=== PATIENT | female | born 1965 | race Caucasian/White ===

== ENCOUNTER 2017-02-04 20:52 | Inpatient (IN) | payer OTHER ==
[~2017-02-04] VITALS: Ht 165.1 cm; Wt 58.1 kg
--- NOTE | ~2017-02-04 | HC ---
[facility] [place] [address] CONSULTATION Name: AVNIDARREL WILSONN Room #: 211-P ADM IN M.R.#: [id number] Admission: 02/04/17 Attend Phys: Ba Dill MD Discharge: Date of : 67 Report #: [id number] THIS REPORT FOR: //name// CC: Marc Telles MD DATE OF SERVICE: 02/05/2017 HISTORY OF PRESENT ILLNESS: The patient is a 51-year-old single white female who I was asked to see in the hospital after she is noted to be in atrial fibrillation. The patient has an extensive past medical history. She apparently has tripped throughout as a child and had mitral valve replacement in 2005 in [place]. She has a history of atrial fibrillation. She has been chronically anticoagulated. Her last echocardiogram here at [facility] in 2014, showed normal left ventricular function, mechanical mitral valve. There appeared to be a mild aortic stenosis. The patient was admitted here in 2014 with respiratory failure and had to be intubated, developed renal failure with creatinine of 8. She had an episode of hypoxic encephalopathy and possible seizure. She eventually was discharged to rehabilitation. The patient was last seen by Dr. Connor in the cardiology clinic in December 2014. At that time, was in sinus rhythm. Since that time, the patient stays active, but recently has been short of breath. She has been treated with steroids and antibiotics. Because of increasing shortness of breath, she went to the hospital last night and was found to be in atrial fibrillation. She was admitted for further evaluation and treatment. She has had a recent cough. She has had some back pain. She denied any palpitations, syncope. She has had no bleeding. PAST MEDICAL HISTORY: Otherwise significant for cholecystectomy, hysterectomy. She apparently had bypass of the right leg in the past. She had previous surgery on an aneurysm in [place]. She has a history of hyperlipidemia. MEDICATIONS: On admission consisted of Abilify, Lipitor, Keppra, Prilosec, furosemide, potassium, warfarin and amiodarone. She apparently is no longer on sotalol. ALLERGIES: She has no known drug allergies. FAMILY HISTORY: Her mother had stent. SOCIAL HISTORY: She is , lives by herself in [place], [place]. 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 Smokes 1-2 cigarettes a day. No alcohol abuse. REVIEW OF SYSTEMS: She has had no history of stroke, asthma. She had a peptic ulcer years ago. No liver disease. She has chronic kidney disease, [place] [address] CONSULTATION Name: DARREL HOLLY Room #: 211-P [facility] IN [facility]#: [id number] Admission: 02/04/17 Attend Phys: Ba Dill MD Discharge: Date of : 67 Report #: [id number] No psychiatric illness. PHYSICAL EXAMINATION: GENERAL: Revealed a middle-aged female who appeared in no distress. VITAL SIGNS: She had a blood pressure of 100/60, pulse is 90. She is afebrile. HEENT: She is anicteric. Conjunctivae are pink. Mucous membranes are moist. NECK: Veins do not appear distended. No carotid bruits. CHEST: Clear to auscultation. CARDIOVASCULAR: Regular rate with grade 3 systolic ejection murmur. ABDOMEN: Soft. EXTREMITIES: Had no edema. Posterior tibial pulse 2+ bilaterally. SKIN: Cool and dry. NEUROLOGIC: Nonfocal. Her ECG shows atrial fibrillation with a controlled ventricular response rate. LABORATORY DATA: Sodium 144, creatinine 1.3. Her troponin is 0.04. INR is 2.5. White blood cell count 12.4, hemoglobin 10.6. IMPRESSION AND RECOMMENDATIONS: 1. Atrial fibrillation. Onset unclear. The patient has been chronically anticoagulated. At this time, I would not recommend attempts at cardioversion. I would aim for rate control. 2. Previous mitral valve replacement. Recommend repeat echocardiogram. 3. Previous surgery on a brain aneurysm. 4. Previous right lower extremity bypass 5. Tobacco abuse. 6. History of chronic kidney disease. 7. Hyperlipidemia. The patient is on a statin drug. <ELECTRONICALLY SIGNED> By: Marc Perez MD, FACC 02/06/17 1606 1411 0640 Marc Perez MD, FACC /nt
--- NOTE | ~2017-02-04 | EKG ---
[place] [address] [facility] [place] [address] ELECTROCARDIOGRAM REPORT Name: HOLLYDARREL Room #: 211- DIS IN M.R.#: [id number] Admission: 02/04/17 Attend Phys: Ba Dill MD Discharge: 02/07/17 Date of : 67 Report #: [id number] THIS REPORT FOR: //name// 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 : 1965 Requested By: Marc Perez Order Number: [id number] MD: Diaz Magallanes Measurements Intervals [place] Rate: 100 P: [place]: QRS: -34 QRSD: 92 T: -18 QT: 328 QTc: 423 Interpretive Statements Atrial fibrillation Poor R wave progression Baseline wander in lead(s) V1,V3 No previous ECG available for comparison Electronically Signed On 02-08-2017 8:12:16 CDT by Diaz Magallanes [email or web address] <ELECTRONICALLY SIGNED> By: Diaz Magallanes MD, [facility] 02/08/1712 5 5 Diaz Magallanes MD, [facility] /EPI
--- NOTE | ~2017-02-04 | EKG ---
[place] [address] [facility] [address] [address] ELECTROCARDIOGRAM REPORT Name: DARREL HOLLY Room #: 211-[facility] IN M.R.#: [id number] Admission: 02/04/17 Attend Phys: Ba Dill MD Discharge: 02/07/17 Date of : 67 Report #: [id number] THIS REPORT FOR: //name// [facility] Test Date: 2017-02-05 Test Time: 07:51:48 Pat Name: DARREL HOLLY Department: Room: 211 P Gender: F Lawn And Garden Technician: jayce : 1965 Requested By: Marisel Peña Order Number: [id number] MD: Diaz Magallanes Measurements Intervals [place] Rate: 75 P: [place]: QRS: 3 QRSD: 91 T: 54 QT: 441 QTc: 493 Interpretive Statements Atrial fibrillation Left ventricular hypertrophy Poor R wave progression No previous ECG available for comparison Electronically Signed On 02-07-2017 13:32:48 CDT by Diaz Magallanes [email or web address] <ELECTRONICALLY SIGNED> By: Diaz Magallanes MD, [facility] 02/07/17 1332 075 075 Diaz Magallanes MD, FACC /EPI
--- NOTE | ~2017-02-04 | 2DMMODE ---
[facility] [address] [place] [address] 2 D/M-MODE ECHOCARDIOGRAM Name: DARREL HOLLY Room #: 211-P ADM IN M.R.#: [id number] Admission: 02/04/17 Attend Phys: Tori Mckenna Discharge: Date of : 67 Date of Service: 02/05/17 1533 Report #: [id number] THIS REPORT FOR: //name// APPROVED REPORT Study performed: 02/05/2017 09:33:54 EXAM: Comprehensive 2D, Doppler, and color-flow Echocardiogram Patient Location: Bedside Room #: 211 Status: routine BSA: 1.58 BP: 90/54 mmHg Other Information Study Quality: Adequate Indications Prosthetic Valve Atrial Fibrillation 2D Dimensions RVDd: 42.80 mm LVEF(%): 47.45 (>50%) IVSd: 9.68 (7-11mm) LVOT Diam: 12.51 (18-24mm) LVDd: 43.43 mm PWd: 13.48 (7-11mm) Ascending Ao: 21.78 (22-36mm) LVDs: 33.17 (25-40mm) Aortic Root: 19.39 mm Concepcion's LVEF: 47.45 % Volumes Left Atrial Volume (Systole) Single Plane 4CH: 99.46 mL Single Plane 2CH: 127.13 mL LA ESV Index: 77.00 mL/m2 Aortic Valve AoV Peak Casa.: 4.00 m/s LVOT Max P.58 mmHg AO Mean Gr.: 34.44 mmHg AO V2 Mean: 2.74 m/s LVOT Max V: 2.38 m/s AO V2 VTI: 91.04 cm DEMETRIS Vmax: 0.73 cm2 Mitral Valve [facility] [address] [place] [address] 2 D/M-MODE ECHOCARDIOGRAM Name: DARREL HOLLY Room #: 211-P [facility] IN ..#: [id number] Admission: 02/04/17 Attend Phys: Tori Mckenna Discharge: Date of : 67 Date of Service: 02/05/17 1533 Report #: [id number] MV Peak Gr.: 21.21 mmHg MV Mean Gr.: 8.34 mmHg MV Decel. Time: 320.99 ms MV Max Casa.: 2.30 m/s MV Mean Casa.: 1.26 m/s MV VTI: 448.95 mm Pulmonary Valve PV Peak Casa.: 0.86 m/s PV Peak Gr.: 2.94 mmHg Tricuspid Valve TR Peak Casa.: 3.25 m/s RAP Estimate: 10.00 mmHg TR Peak Gr.: 42.15 mmHg Left Ventricle The left ventricle is normal size. There is global hypokinesis of the left ventricle. There is normal left ventricular wall thickness. Left ventricular systolic function is mild to moderately decreased. LVEF is 30-35%. This study is not technically sufficient to allow evaluation of the LV diastolic function due to atrial fibrillation. Right Ventricle Right ventricle is mildly dilated. Right ventricle is hypokinetic. Atria Left atrium is severely dilated. Right atrium is moderately dilated. Aortic Valve Aortic valve leaflets are thickened. Moderate aortic regurgitation. There is moderate to severe valvular aortic stenosis. Calculated aortic valve area is 0.7 cm2 with maximum pressure gradient of 64 mmHg and mean pressure gradient of 34mmHg. Aortic valve area by planimetry measures 1.0 cm2. Moderate aortic stenosis. Mitral Valve There is a mechanical mitral valve present with a maximum pressure gradient of 21 mmHg and a mean pressure gradient of 8 mmHg. Difficult to assess mitral regurgitation due to mechanical valve masking. Tricuspid Valve The tricuspid valve is normal in structure. There is severe tricuspid regurgitation. The right atrial pressure is estimated at 10 mmHg. [facility] [address] [place] [address] 2 D/M-MODE ECHOCARDIOGRAM Name: DARREL HOLLY Room #: 211-P [facility] IN [facility].#: [id number] Admission: 02/04/17 Attend Phys: Tori Mckenna Discharge: Date of : 67 Date of Service: 02/05/17 1533 Report #: [id number] is estimated at 52 mmHg. Pulmonic Valve The pulmonary valve is normal in structure. Mild pulmonic regurgitation. Great Vessels The aortic root is normal in size. Aortic arch is not visualized. IVC is normal in size and collapses <50% with inspiration. Pericardium No pericardial effusion. <Conclusion> LVEF is 30-35%. Left atrium is severely dilated. Right atrium is moderately dilated. Aortic valve leaflets are thickened. Moderate aortic regurgitation. Calculated aortic valve area is 0.7 cm2 with maximum pressure gradient of 64 mmHg and mean pressure gradient of 34mmHg. Aortic valve area by planimetry measures 1.0 cm2. Moderate aortic stenosis. There is a mechanical mitral valve present with a maximum pressure gradient of 21 mmHg and a mean pressure gradient of 8 mmHg. There is severe tricuspid regurgitation. The right atrial pressure is estimated at 10 mmHg. PAP is estimated at 52 mmHg. <ELECTRONICALLY SIGNED> By: Marc Perez MD, FACC 02/05/17 1533 1533 1533 Marc Perez MD, FACC /INF
--- NOTE | ~2017-02-04 | EKG ---
[address] [place] [address] ELECTROCARDIOGRAM REPORT Name: DARREL HOLLY Room #: 211-[facility] IN M.R.#: [id number] Admission: 02/04/17 Attend Phys: Ba Dill MD Discharge: 02/07/17 Date of : 67 Report #: [id number] THIS REPORT FOR: //name// [facility] Test Date: 2017-02-07 Test Time: 07:50:21 Pat Name: DARREL HOLLY Department: Room: 211 P Gender: F Box Liner: [place] : 1965 Requested By: Marc Perez Order Number: [id number] MD: Diaz Magallanes Measurements Intervals [place] Rate: 85 P: [place]: QRS: 1 QRSD: 115 T: QT: 484 QTc: 576 Interpretive Statements Atrial fibrillation Poor R wave progression No previous ECG available for comparison Electronically Signed On 02-08-2017 8:18:41 CDT by Diaz Magallanes [email or web address] <ELECTRONICALLY SIGNED> By: Diaz Magallanes MD, [facility] 02/08/17 0818 0750 0750 Diaz Magallanes MD, FACC /EPI
[~2017-02-04 20:52] MED LIST: ABILIFY15 MG PO; ATIVAN0.5 MG PO; ATORVASTATIN CA40 MG PO; AUGMENTIN 875875 MG PO; CELEBREX 200 M200 M1 PO; COLACE100 MG PO; COUMADIN 3 MG TA3 M1 PO; DIGITEK125 MC1 PO; DUONEB 2.5-0.5 M3 ML INH; HYDROCODONE-AP1 EAC6 PO; KEPPRA 500 MG500 M1 PO; KLOR-CON 1010 MEQ PO; LASIX 40 MG TAB40 M2 PO; NEURONTIN600 MG PO; PACERONE 200 M200 M1 PO; PRILOSEC40 MG PO; SENNA PO; SORINE 80 MG TA80 M1 PO; TEARS NATURALE1 EACH OPHTHALMIC; TYLENOL325 MG PO; VIIBRYD40 MG PO; ZANTAC 150MG T150 MG PO
[2017-02-04 21:15] VITALS: BP 100/65
[2017-02-04 23:59] VITALS: BP 91/45
[2017-02-05 02:50] LABS: HEMATOCRIT 33.4 % (37.0-47.0); HEMOGLOBIN 10.6 gm/dL (12.0-15.0); MCH 31.7 pg (26.0-34.0); MCHC 31.8 g/dL (28.0-37.0); MCV 99.6 fL (80.0-100.0); RBC 3.35 mil/uL (4.20-5.00); RDW 16.7 % (10.5-14.5); WBC 12.4 thou/uL (4.0-11.0)
[2017-02-05 03:00] LABS: INR 2.5; PROTIME 25.4 Seconds (9.3-11.4)
[2017-02-05 03:03] LABS: CALCIUM 8.4 mg/dL (8.5-10.1); CREATININE 1.3 mg/dL (0.6-1.0); POTASSIUM 3.9 mmol/L (3.5-5.1)
[2017-02-05 03:15] VITALS: BP 90/54
[2017-02-05 08:10] VITALS: BP 102/50
[2017-02-05 12:10] VITALS: BP 98/54
[2017-02-05 16:10] VITALS: BP 108/64
[2017-02-05 19:47] VITALS: BP 106/50
[2017-02-06 04:02] LABS: INR 2.1; PROTIME 21.5 Seconds (9.3-11.4)
[2017-02-06 04:08] LABS: ANION GAP 7 mmol/L (7-16); BUN 38 mg/dL (7-18); CALCIUM 9.4 mg/dL (8.5-10.1); CHLORIDE 107 mmol/L (98-107); CO2 24 mmol/L (21-32); CREATININE 1.4 mg/dL (0.6-1.0); GLUCOSE 148 mg/dL (74-106); POTASSIUM 4.7 mmol/L (3.5-5.1); SODIUM 138 mmol/L (136-145)
[2017-02-06 04:14] LABS: SERUM ASSESSMENT Clear
[2017-02-06 04:26] LABS: CHOLESTEROL 166 mg/dL (<200); HDL CHOLESTEROL 78 mg/dL (>40); LDL CHOLESTEROL 75 mg/dL (<100); TC:HDL 2.1 Ratio (Not establshd); TRIGLYCERIDE 65 mg/dL (<150); VLDL 13 mg/dL (<40)
[2017-02-06 04:57] VITALS: BP 109/70
[2017-02-06 08:45] VITALS: BP 93/56
[2017-02-06 12:00] VITALS: BP 116/85
[2017-02-06 15:55] VITALS: BP 111/76
[2017-02-06 17:04] LABS: AMP/METHAMP Negative (Negative); BARBITURATES Negative (Negative); BENZODIAZEPINES POSITIVE (Negative); COCAINE Negative (Negative); METHADONE Negative (Negative); OPIATES POSITIVE (Negative); PCP Negative (Negative); THC Negative (Negative)
[2017-02-06 19:43] VITALS: BP 113/55
[2017-02-07 03:57] LABS: INR 2.9; PROTIME 27.5 Seconds (9.3-11.4)
[2017-02-07 04:18] VITALS: BP 90/51
[2017-02-07 08:00] VITALS: BP 100/55
[2017-02-07] MEDS ORDERED: LEVAQUIN 500 M500 M1 PO (08:38)
[2017-02-07] MEDS ORDERED: NICOTINE GUM2 MG MUCOUS MEM (08:38)
[2017-02-07] MEDS ORDERED: DIGOXIN IV PUSH (08:39)
[2017-02-07] MEDS ORDERED: CARTIA XT120 M1 PO (08:40)
[2017-02-07 08:57] VITALS: BP 100/55
[2017-02-07 09:36] VITALS: BP 100/55
== END 2017-02-07 10:25 | disposition home or self-care (01) | DRG 190 ==
LOC: 2N 20:52 → SICU 20:52 → 2N 21:04
PROVIDERS: Internal Medicine Cardiovascular Disease; Nurse Practitioner Family; Psychiatry & Neurology Addiction Medicine
DX: J44.1 Chronic obstructive pulmonary disease with (acute) exacerbation (principal); N17.0 Acute kidney failure with tubular necrosis; I48.92 Unspecified atrial flutter; I42.9 Cardiomyopathy, unspecified; I48.91 Unspecified atrial fibrillation; E78.5 Hyperlipidemia, unspecified; F17.210 Nicotine dependence, cigarettes, uncomplicated; R56.9 Unspecified convulsions; G89.29 Other chronic pain; N18.9 Chronic kidney disease, unspecified; I00 Rheumatic fever without heart involvement; I35.0 Nonrheumatic aortic (valve) stenosis; F32.9 Major depressive disorder, single episode, unspecified; F41.9 Anxiety disorder, unspecified; D72.829 Elevated white blood cell count, unspecified; T38.0X5A Adverse effect of glucocorticoids and synthetic analogues, initial encounter; Z79.01 Long term (current) use of anticoagulants; Z79.899 Other long term (current) drug therapy; Z95.2 Presence of prosthetic heart valve; Z90.49 Acquired absence of other specified parts of digestive tract; Z90.710 Acquired absence of both cervix and uterus; Z95.820 Peripheral vascular angioplasty status with implants and grafts; Z86.718 Personal history of other venous thrombosis and embolism; Z87.81 Personal history of (healed) traumatic fracture; Y92.89 Other specified places as the place of occurrence of the external cause; Z91.040 Latex allergy status
CPT/HCPCS: 10797

== ENCOUNTER 2017-04-03 12:25 | Inpatient (IN) | payer OTHER ==
[~2017-04-03] VITALS: Ht 165.1 cm; Wt 60.8 kg
[~2017-04-03 12:25] MED LIST changes: +CARDIZEM CD120 MG PO; +CARTIA XT120 M1 PO; +DIGOXIN IV PUSH; +KEPPRA 500 MG500 MG PO; +LANOXIN 0.250.25 M1 PO; +LASIX 40 MG TAB40 MG PO; +LEVAQUIN 250 M250 MG PO; +LEVAQUIN 500 M500 M1 PO; +NICOTINE GUM2 MG MUCOUS MEM; +PERCOCET 10-321 EACH PO; +SENNA8.6 MG PO
[2017-04-03] MEDS ORDERED: LASIX 40 MG TAB40 M2 PO (12:31)
[2017-04-03] MEDS ORDERED: XANAX1 MG PO (12:33)
[2017-04-03] MEDS ORDERED: COUMADIN 3 MG TA3 MG PO (12:34)
[2017-04-03 12:35] VITALS: BP 110/65
[2017-04-03] MEDS ORDERED: BACLOFEN 10MG T10 MG PO (12:35)
[2017-04-03] MEDS ORDERED: PACERONE100 MG PO (12:36)
[2017-04-03] MEDS ORDERED: MAGOX 400400 MG PO (13:17)
[2017-04-03] MEDS ORDERED: PRILOSEC 20 MG20 MG PO (13:18)
[2017-04-03] MEDS ORDERED: PROTONIX40 M1 PO (13:20)
[2017-04-03 13:40] LABS: HEMATOCRIT 38.7 % (37.0-47.0); HEMOGLOBIN 12.5 gm/dL (12.0-15.0); MCH 30.8 pg (26.0-34.0); MCHC 32.3 g/dL (28.0-37.0); MCV 95.3 fL (80.0-100.0); RBC 4.07 mil/uL (4.20-5.00); RDW 16.7 % (10.5-14.5); WBC 12.7 thou/uL (4.0-11.0)
[2017-04-03 13:53] LABS: CALCIUM 8.7 mg/dL (8.5-10.1); CREATININE 1.4 mg/dL (0.6-1.0); POTASSIUM 4.7 mmol/L (3.5-5.1)
[2017-04-03 13:55] LABS: INR 2.2; PROTIME 22.5 Seconds (9.3-11.4)
[2017-04-03 13:59] LABS: ALBUMIN 3.1 g/dL (3.4-5.0); TOTAL BILIRUBIN 0.5 mg/dL (<0.1-1.0); TOTAL PROTEIN 6.6 g/dL (6.4-8.2)
[2017-04-03 15:07] VITALS: BP 102/44
[2017-04-03 19:47] VITALS: BP 92/55
[2017-04-04 02:46] VITALS: BP 101/43
[2017-04-04 05:24] LABS: HEMATOCRIT 34.4 % (37.0-47.0); HEMOGLOBIN 11.2 gm/dL (12.0-15.0); MCH 31.2 pg (26.0-34.0); MCHC 32.6 g/dL (28.0-37.0); MCV 95.9 fL (80.0-100.0); RBC 3.59 mil/uL (4.20-5.00); RDW 17.2 % (10.5-14.5); WBC 10.3 thou/uL (4.0-11.0)
[2017-04-04 05:25] LABS: CALCIUM 8.2 mg/dL (8.5-10.1); CREATININE 1.6 mg/dL (0.6-1.0); POTASSIUM 3.9 mmol/L (3.5-5.1)
[2017-04-04 05:29] LABS: PROTIME 20.3 Seconds (9.3-11.4)
[2017-04-04 07:46] VITALS: BP 92/54
[2017-04-04 11:08] VITALS: BP 101/61
[2017-04-04 13:23] LABS: ALBUMIN 3.3 g/dL (3.4-5.0); DIRECT BILIRUBIN 0.1 mg/dL (<0.1-0.3); TOTAL BILIRUBIN 0.5 mg/dL (<0.1-1.0); TOTAL PROTEIN 7.1 g/dL (6.4-8.2)
[2017-04-04 13:34] LABS: % SATURATION 15 % (20-39); IRON 60 ug/dL (50-170); TIBC 411 ug/dL (250-450); UIBC 351 ug/dL
[2017-04-04 13:48] LABS: TSH 3.162 uIU/mL (0.358-3.740)
[2017-04-04 17:19] VITALS: BP 120/85
[2017-04-04 19:22] VITALS: BP 106/67
[2017-04-04 21:07] LABS: IgG 839 mg/dL (700-1600)
[2017-04-05 03:50] VITALS: BP 108/64
[2017-04-05 06:15] LABS: HEMATOCRIT 35.5 % (37.0-47.0); HEMOGLOBIN 11.5 gm/dL (12.0-15.0); MCH 30.9 pg (26.0-34.0); MCHC 32.3 g/dL (28.0-37.0); MCV 95.8 fL (80.0-100.0); RBC 3.71 mil/uL (4.20-5.00); RDW 17.2 % (10.5-14.5); WBC 10.6 thou/uL (4.0-11.0)
[2017-04-05 06:34] LABS: ALBUMIN 2.8 g/dL (3.4-5.0); CALCIUM 8.8 mg/dL (8.5-10.1); CREATININE 1.5 mg/dL (0.6-1.0); INR 2.3; POTASSIUM 3.8 mmol/L (3.5-5.1); PROTIME 23.4 Seconds (9.3-11.4); TOTAL BILIRUBIN 0.4 mg/dL (<0.1-1.0); TOTAL PROTEIN 5.9 g/dL (6.4-8.2)
[2017-04-05 08:02] VITALS: BP 94/58
[2017-04-05 11:48] VITALS: BP 96/45
[2017-04-05 14:13] LABS: HEPATITIS C VIRUS AB <0.1 (0.0-0.9)
[2017-04-05 14:25] VITALS: BP 96/45
[2017-04-05 14:34] VITALS: BP 96/45
[2017-04-05 15:07] LABS: CERULOPLASMIN 41.2 mg/dL (19.0-39.0)
== END 2017-04-05 15:36 | disposition home health service (06) | DRG 438 ==
LOC: 3W 12:25
PROVIDERS: Hospitalist; Nurse Practitioner
DX: K86.89 Other specified diseases of pancreas (principal); J69.0 Pneumonitis due to inhalation of food and vomit; I50.23 Acute on chronic systolic (congestive) heart failure; I48.92 Unspecified atrial flutter; F41.9 Anxiety disorder, unspecified; F32.9 Major depressive disorder, single episode, unspecified; E78.5 Hyperlipidemia, unspecified; R74.0 Nonspecific elevation of levels of transaminase and lactic acid dehydrogenase [LDH]; I48.2 Chronic atrial fibrillation; H91.92 Unspecified hearing loss, left ear; N18.3 Chronic kidney disease, stage 3 (moderate); I73.9 Peripheral vascular disease, unspecified; J44.9 Chronic obstructive pulmonary disease, unspecified; G40.909 Epilepsy, unspecified, not intractable, without status epilepticus; F17.210 Nicotine dependence, cigarettes, uncomplicated; Z95.2 Presence of prosthetic heart valve; Z91.040 Latex allergy status; Z90.49 Acquired absence of other specified parts of digestive tract; Z90.710 Acquired absence of both cervix and uterus
CPT/HCPCS: 10779